=== PATIENT | female | born 1935 ===

== ENCOUNTER 2023-08-18 07:30 | Inpatient (IN) | payer OTHER ==
[~2023-08-18] VITALS: Ht 157.5 cm; Wt 68.0 kg
[2023-08-18] MEDS ORDERED: INDERAL LA80 MG PO (09:46)
[2023-08-18] MEDS ORDERED: HYDRODIURIL12.5 MG PO (09:46)
[2023-08-18] MEDS ORDERED: COZAAR100 MG PO (09:46)
[2023-08-18] MEDS ORDERED: NORVASC2.5 M1 PO (09:46)
[2023-08-18] MEDS ORDERED: FOLIC ACID1 MG PO (09:47)
[2023-08-18] MEDS ORDERED: ROSUVASTATIN CA10 MG PO (09:47)
[2023-08-18 10:11] LABS: HEMOGLOBIN 14.1 g/dL (12.0-15.00); MEAN CELL VOLUME 90.6 fL (80.00-100.00); MEAN CORPUSCULAR HEMOGLOBIN 31.1 pg (27.00-32.0); MEAN CORPUSCULAR HGB CONC 34.4 g/dl (32.0-36.0); PLATELET COUNT 148 K/uL (150-450); RED BLOOD COUNT 4.52 M/uL (4.00-6.00)
[2023-08-18 10:15] LABS: URINE APPEARANCE Clear; URINE BILIRRUBIN Negative (NEGATIVE); URINE BLOOD Trace; URINE COLOR Yellow; URINE GLUCOSE Negative (NEGATIVE); URINE LEUKOCYTE Negative; URINE NITRATE Negative; URINE PROTEIN Negative (NEGATIVE); URINE UROBILINOGEN 0.2 E.U./dl
[2023-08-18 10:21] LABS: URINE BACTERIA 25.1 uL (0.0-1933); URINE EPITHELIAL CELLS 10.8 uL (0.0-38.8); URINE RBC 31.7 uL (0.0-20.8); URINE WBC 2.1 uL (0.0-23.2)
[2023-08-18 10:37] LABS: INR 1.06; PARTIAL THROMBOPLASTIN TIME 25.9 SECONDS (22.0-34.0); PROTHROMBIN TIME 11.1 SECONDS (9.0-11.5)
[2023-08-18 10:41] LABS: ALBUMIN 3.9 gm/dL (3.4-5.0); BILIRUBIN TOTAL 0.56 mg/dL (0.3-1.2); CALCIUM 9.9 mg/dL (8.5-10.1); CREATININE SERUM 0.75 mg/dL (0.55-1.02); GFR 73.27; GLOBULINA 3.1 G/DL (2.4-3.5); POTASSIUM 3.79 mEq/L (3.5-5.1)
[2023-08-24] MEDS ORDERED: TRANEXAMIC ACID 100MG/1ML (1000MG) AMPUL IV ONE (11:41)
[2023-08-24] MEDS ORDERED: CEFAZOLIN SODIUM 1,000 MG VIAL ONE ×2 (11:41→17:39)
[2023-08-24] MEDS ORDERED: LIDOCAINE HCL 1%/Epi 20ML VIAL IJ ONE (12:02)
[2023-08-24] MEDS ORDERED: KETOROLAC TROMETHAMINE 60 MG VIAL IM ONE (12:03)
[2023-08-24] MEDS ORDERED: OxyCODONE HCL 5 MG TABLET (ROXICODONE) PO PRN (15:00)
[2023-08-24] MEDS ORDERED: MORPHINE SULFATE 4 MG/ML CARTRIDGE IV PRN (15:00)
[2023-08-24] MEDS ORDERED: ONDANSETRON HCL 2 MG/ML VIAL IV PRN (15:00)
[2023-08-24] MEDS ORDERED: SODIUM CHLORIDE 0.45 % 1,000 ML IV SCH (15:00)
[2023-08-24] MEDS ORDERED: PROPRANOLOL HCL60 MG (15:49)
[2023-08-24] MEDS ORDERED: CEFAZOLIN SODIUM 1,000 MG VIAL IV SCH (17:00)
[2023-08-24] MEDS ORDERED: GABAPENTIN 300 MG CAPSULE PO SCH (17:00)
[2023-08-24] MEDS ORDERED: ONDANSETRON HCL 2 MG/ML VIAL ONE (17:38)
[2023-08-24] MEDS ORDERED: ACETAMINOPHEN 500 MG GEL..CAP PO SCH (18:00)
[2023-08-25 05:16] LABS: HEMATOCRIT 30.7 % (36.0-45.00); HEMOGLOBIN 10.5 g/dL (12.0-15.00); MEAN CELL VOLUME 90.5 fL (80.00-100.00); MEAN CORPUSCULAR HEMOGLOBIN 31.1 pg (27.00-32.0); MEAN CORPUSCULAR HGB CONC 34.3 g/dl (32.0-36.0); PLATELET COUNT 108 K/uL (150-450); RED BLOOD COUNT 3.39 M/uL (4.00-6.00); RED CELL DISTRIBUTION WIDTH 13.2 % (11.5-14.5)
[2023-08-25] MEDS ORDERED: PROPRANOLOL HCL 20 MG TABLET PO ONE (08:04)
[2023-08-25] MEDS ORDERED: PERCOCET 5-3251 EACH PO (08:21)
[2023-08-25] MEDS ORDERED: ELIQUIS2.5 MG PO (08:21)
[2023-08-25] MEDS ORDERED: DUI500 PO (08:21)
[2023-08-25] MEDS ORDERED: AMLODIPINE BESYLATE 2.5 MG TABLET PO SCH (09:00)
[2023-08-25] MEDS ORDERED: FOLIC ACID 1 MG TABLET PO SCH (09:00)
[2023-08-25] MEDS ORDERED: HYDROCHLOROTHIAZIDE 12.5 MG CAPSULE PO SCH (09:00)
[2023-08-25] MEDS ORDERED: PROPRANOLOL HCL PO SCH (09:00)
[2023-08-25] MEDS ORDERED: APIXABAN 2.5 MG TABLET PO SCH (09:00)
[2023-08-25] MEDS ORDERED: SENNOSIDES 1 TAB TABLET PO SCH (09:00)
[2023-08-25] MEDS ORDERED: VITAMIN B COMPLEX 1 EACH PO SCH (12:46)
[2023-08-25] MEDS ORDERED: SOD FERRIC GLUC COMPLX/SUCROSE 62.5 MG/5 ML AMPUL IV SCH (12:46)
[2023-08-25] MEDS ORDERED: Cyanocobalamin/Mecobalamin 1 TAB.SL SL SCH (12:46)
[2023-08-26 05:56] LABS: HEMATOCRIT 30.1 % (36.0-45.00); HEMOGLOBIN 10.3 g/dL (12.0-15.00); MEAN CELL VOLUME 90.7 fL (80.00-100.00); MEAN CORPUSCULAR HGB CONC 34.2 g/dl (32.0-36.0); RED BLOOD COUNT 3.32 M/uL (4.00-6.00); RED CELL DISTRIBUTION WIDTH 13.1 % (11.5-14.5)
[2023-08-26 06:16] LABS: PLATELET COUNT 100 K/uL (150-450)
[2023-08-26] MEDS ORDERED: IRON FUM,PS/FOLIC ACID/VITC/B3 1 CAP CAPSULE PO SCH (09:00)
[2023-08-26] MEDS ORDERED: CEFAZOLIN SODIUM 1,000 MG VIAL IV ONE (22:00)
[2023-08-26] MEDS ORDERED: TRANEXAMIC ACID 100MG/1ML (1000MG) AMPUL IV ONE ×2 (22:15)
[2023-08-26] MEDS ORDERED: KETOROLAC TROMETHAMINE 60 MG VIAL IM ONE (22:15)
[2023-08-26] MEDS ORDERED: MORPHINE SULFATE 4 MG/ML VIAL IV ONE (22:15)
== END 2023-08-26 22:04 | DRG 470 ==
LOC: O/R 08-24 06:47 → SURH 08-24 07:30 → SURG 08-24 17:15
PROVIDERS: ADMIT Orthopaedic Surgery; ATTEND Orthopaedic Surgery
PROC: 0MNN0ZZ Release Right Knee Bursa and Ligament, Open Approach (ICD-10-PCS; 2023-08-24)
PROC: 0QS604Z Reposition Right Upper Femur with Internal Fixation Device, Open Approach (ICD-10-PCS; 2023-08-24)
PROC: 0QUB0JZ Supplement Right Lower Femur with Synthetic Substitute, Open Approach (ICD-10-PCS; 2023-08-24)
PROC: 0SRC0JZ Replacement of Right Knee Joint with Synthetic Substitute, Open Approach (ICD-10-PCS; principal; 2023-08-24 09:30)
DX: M17.11 Unilateral primary osteoarthritis, right knee (principal); S72.424A Nondisplaced fracture of lateral condyle of right femur, initial encounter for closed fracture; M80.051A Age-related osteoporosis with current pathological fracture, right femur, initial encounter for fracture; D62 Acute posthemorrhagic anemia; X58.XXXA Exposure to other specified factors, initial encounter; I10 Essential (primary) hypertension

== ENCOUNTER 2024-12-26 08:00 | Inpatient (IN) | payer OTHER ==
[~2024-12-26] VITALS: Ht 157.5 cm; Wt 70.3 kg
[~2024-12-26 08:00] MED LIST: COZAAR100 MG PO; DUI500 PO; ELIQUIS2.5 MG PO; FOLIC ACID1 MG PO; HYDRODIURIL12.5 MG PO; INDERAL LA80 MG PO; NORVASC2.5 M1 PO; PERCOCET 5-3251 EACH PO; PROPRANOLOL HCL60 MG; ROSUVASTATIN CA10 MG PO
[2024-12-26 10:19] LABS: BASO % 0.7 % (0.1-1.2); EOS # 0.17 (0.04-0.54); EOS % 2.3 % (0.7-7.0); LYMPH # 1.51 (1.18-3.74); LYMPH % 20.5 % (19.3-53.1); MEAN PLATELET VOLUME 9.40 fl (9.4-12.4); MONO # 0.43 (0.24-0.82); MONO % 5.8 % (4.7-12.5); NEUT # 5.17 (1.56-6.13); NEUT % 70.0 % (34.0-71.1); RED CELL DISTRIBUTION WIDTH 13.0 % (11.6-14.4)
[2024-12-26 10:21] LABS: URINE APPEARANCE Clear; URINE BILIRRUBIN Negative (NEGATIVE); URINE BLOOD Small; URINE COLOR Yellow; URINE GLUCOSE Negative (NEGATIVE); URINE KETONE Negative (NEGATIVE); URINE LEUKOCYTE Negative; URINE NITRATE Negative; URINE PROTEIN Trace (NEGATIVE); URINE UROBILINOGEN 0.2 E.U./dl
[2024-12-26 10:22] LABS: URINE BACTERIA 61.1 uL (0.0-1933); URINE EPITHELIAL CELLS 6.9 uL (0.0-38.8); URINE RBC 36.0 uL (0.0-20.8); URINE WBC 1.8 uL (0.0-23.2)
[2024-12-26 10:26] VITALS: BP 168/80
[2024-12-26 10:26] LABS: URINE CAST 0.29 uL (0.0-1.40)
[2024-12-26 10:49] LABS: COVID-19 AG NEGATIVE (NEGATIVE)
[2024-12-26 10:56] LABS: INR 1.08
[2024-12-26 11:07] LABS: ALT/SGPT 24.0 U/L (12-78); AST/SGOT 20.0 U/L (15-37); BILIRUBIN TOTAL 0.53 mg/dL (0.3-1.2); BUN CREA RATIO 31.0 (7.0-25.0); CREATININE SERUM 0.89 mg/dL (0.55-1.02); GFR 60.0; GLOBULINA 3.4 G/DL (2.4-3.5); GLUCOSE FASTING 108.0 mg/dL (65-100); OSMOLALITY SERUM 293.0 MOSM/KG (275-295)
[2024-12-26 13:43] LABS: RH POSITIVE
[2025-01-02] MEDS ORDERED: TRANEXAMIC ACID 100MG/1ML (1000MG) AMPUL IV ONE ×2 (13:45→16:00)
[2025-01-02] MEDS ORDERED: ISOPROPYL ALCOHOL 30 ML OUNCE TOP ONE (13:45)
[2025-01-02] MEDS ORDERED: CEFAZOLIN SODIUM 1,000 MG VIAL IV ONE (13:45)
[2025-01-02] MEDS ORDERED: BUPIVACAINE HCL 30 ML VIAL IV ONE (13:45)
[2025-01-02] MEDS ORDERED: KETOROLAC TROMETHAMINE 30 MG VIAL IV ONE (13:45)
[2025-01-02] MEDS ORDERED: POVIDONE-IODINE 118 ML BOTT TOP ONE (13:45)
[2025-01-02] MEDS ORDERED: LIDOCAINE HCL 1%/EPINEPHRINE 20ML VIAL IJ ONE (13:45)
[2025-01-02] MEDS ORDERED: hydrALAZINE HCL 20 MG VIAL IV PRN (15:30)
[2025-01-02] MEDS ORDERED: ALENDRONATE SOD70 MG (15:42)
[2025-01-02] MEDS ORDERED: PROPRANOLOL HCL80 MG (15:42)
[2025-01-02] MEDS ORDERED: ONDANSETRON HCL 2 MG/ML VIAL IV PRN (16:15)
[2025-01-02] MEDS ORDERED: SODIUM CHLORIDE 0.45 % 1,000 ML IV SCH (16:15)
[2025-01-02] MEDS ORDERED: MORPHINE SULFATE 4 MG/ML CARTRIDGE IV PRN (16:15)
[2025-01-02] MEDS ORDERED: OxyCODONE HCL 5 MG TABLET (ROXICODONE) PO PRN (16:15)
[2025-01-02] MEDS ORDERED: CEFAZOLIN SODIUM 1,000 MG VIAL IV SCH (17:00)
[2025-01-02] MEDS ORDERED: GABAPENTIN 300 MG CAPSULE PO SCH (17:00)
[2025-01-02] MEDS ORDERED: MORPHINE SULFATE 4 MG/ML VIAL IV ONE ×2 (17:00→17:30)
[2025-01-02] MEDS ORDERED: ACETAMINOPHEN 500 MG GEL..CAP PO SCH (18:00)
[2025-01-02 18:51] VITALS: BP 120/65; O2SAT 94
[2025-01-03 00:34] VITALS: BP 133/76; O2SAT 96
[2025-01-03 07:59] LABS: BASO % 0.1 % (0.1-1.2); EOS # 0.04 (0.04-0.54); EOS % 0.6 % (0.7-7.0); LYMPH # 0.76 (1.18-3.74); LYMPH % 10.9 % (19.3-53.1); MEAN PLATELET VOLUME 9.90 fl (9.4-12.4); MONO # 0.61 (0.24-0.82); MONO % 8.8 % (4.7-12.5); NEUT # 5.52 (1.56-6.13); NEUT % 79.3 % (34.0-71.1); RED CELL DISTRIBUTION WIDTH 13.2 % (11.6-14.4)
[2025-01-03] MEDS ORDERED: PERCOCET 5-3251 EACH PO (08:59)
[2025-01-03] MEDS ORDERED: ELIQUIS2.5 MG PO (08:59)
[2025-01-03] MEDS ORDERED: DUI500 PO (08:59)
[2025-01-03] MEDS ORDERED: SENNOSIDES 1 TAB TABLET PO SCH (09:00)
[2025-01-03] MEDS ORDERED: APIXABAN 2.5 MG TABLET PO SCH (09:00)
[2025-01-03] MEDS ORDERED: PROPRANOLOL HCL 60 MG TABLET PO SCH (09:00)
[2025-01-03] MEDS ORDERED: LOSARTAN POTASSIUM 100 MG TABLET PO SCH (09:00)
[2025-01-03 09:46] VITALS: BP 172/80; O2SAT 96
[2025-01-04] MEDS ORDERED: IRON FUM,PS/FOLIC ACID/VITC/B3 1 CAP CAPSULE PO SCH (09:00)
== END 2025-01-03 17:10 | DRG 470 ==
LOC: SURH 01-02 08:00 → O/R 01-02 12:29 → SURH 01-02 16:17
PROVIDERS: ADMIT Orthopaedic Surgery; ATTEND Orthopaedic Surgery
PROC: 0MNP0ZZ Release Left Knee Bursa and Ligament, Open Approach (ICD-10-PCS; 2025-01-02)
PROC: 0QUF0KZ Supplement Left Patella with Nonautologous Tissue Substitute, Open Approach (ICD-10-PCS; 2025-01-02)
PROC: 0QUF0JZ Supplement Left Patella with Synthetic Substitute, Open Approach (ICD-10-PCS; 2025-01-02)
PROC: 0SRD0JZ Replacement of Left Knee Joint with Synthetic Substitute, Open Approach (ICD-10-PCS; principal; 2025-01-02 17:15)
DX: M17.0 Bilateral primary osteoarthritis of knee (principal); D62 Acute posthemorrhagic anemia; Z96.653 Presence of artificial knee joint, bilateral; Z86.19 Personal history of other infectious and parasitic diseases; I10 Essential (primary) hypertension